=== PATIENT | male | born 1980 | race Caucasian/White ===

== ENCOUNTER 2023-01-20 06:17 | Emergency (ER) | payer OTHER, SELFPAY ==
[2023-01-20 06:23] VITALS: BP 123/87; PULSE 81; RESP 18; TEMP 36.9; O2SAT 98
[2023-01-20 07:06] LABS: Appearance Urine Clear (Clear); Basophils Absolute Auto 0.1 K/mm3 (0.0-0.1); Basophils Percent Auto 0.9 % (0.2-1.2); Bilirubin Urine Negative (Negative); Blood Urine Negative (Negative); Color Urine Yellow (Yellow); Eosinophils Absolute Auto 0.8 K/mm3 (0-0.3); Eosinophils Percent Auto 7.1 % (0-4.4); Glucose Urine UA Negative (Negative); Hematocrit 40.5 % (42.0-52.0); Hemoglobin 13.5 g/dL (14.0-18.0); Immature Granulocyte Absolute 0.04 K/mm3 (0.00-0.031); Immature Granulocyte Percent A 0.4 % (0-0.5); Ketones Urine Negative (Negative); Leukocyte Esterase Ur Negative LEU/UL (Negative); Lymphocytes Absolute Auto 3.37 K/mm3 (0.9-3.2); Lymphocytes Percent Auto 29.6 % (18.3-44.2); Mean Corpuscular HGB Conc 33.3 g/dl (32-36); Mean Corpuscular Hemoglobin 30.2 pg (26-34); Mean Corpuscular Volume 90.6 fl (80-100); Mean Platelet Volume 10.8 fl (7.4-10.4); Monocytes Absolute Auto 1.2 K/mm3 (0.1-0.6); Monocytes Percent Auto 10.9 % (2.6-8.5); Neutrophils Absolute Auto 5.8 K/mm3 (1.3-6.7); Neutrophils Percent Auto 51.1 % (45.5-73.1); Nitrate Urine Negative (Negative); Platelet Count Result 225 k/mm3 (150-375); Protein Urine Negative (Negative); Red Blood Count 4.47 M/mm3 (4.6-6.20); Red Cell Distribution Width 13.2 % (11.5-14.5); Specific Grav Ur 1.023 (1.001-1.035); White Blood Count 11.4 K/mm3 (4.5-10.0); pH Urine 6.5 (5.0-9.0)
[2023-01-20 07:11] LABS: Add Urine Microscopic? NO
[2023-01-20 07:14] LABS: Acetaminophen < 10 ug/mL (10-30); Ethanol < 10 mg/dL (<10); Salicylate < 1.0 mg/dL (2-20)
[2023-01-20 07:15] LABS: Alanine Aminotransferase 24 U/L (6-50); Albumin Level 3.8 g/dL (3.5-5.1); Alkaline Phosphatase 60 U/L (38-126); Anion Gap 2 mmol/L (8-16); Aspartate Amino Transferase 27 U/L (17-59); Bilirubin,Total 0.5 mg/dL (0.2-1.3); Blood Urea Nitrogen 16 mg/dL (9-20); Calcium 8.4 mg/dL (8.4-10.2); Carbon Dioxide 31 mmol/L (22-30); Chloride 107 mmol/L (98-107); Estimated CRCL calculation 126 ml/min; Estimated Glomerular Filt Rate > 60; Glucose 97 mg/dL (65-110); Potassium 3.8 mmol/L (3.4-5.0); Sodium 140 mmol/L (137-145)
--- NOTE | 2023-01-20 07:15 | PC.NURSE ---
pt resting on stretcher. no distress noted.
[2023-01-20 07:21] LABS: Amphetamine Screen Urine Negative (Negative); Barbiturate Screen Urine Negative (Negative); Benzodiazepines Screen Urine Negative (Negative); Cannabinoid Screen Urine Positive (Negative); Cocaine Screen Urine Negative (Negative); Methadone Screen Urine Negative (Negative); Opiate Screen Urine Negative (Negative); Phencyclidine Screen Urine Negative (Negative)
--- NOTE | 2023-01-20 07:46 | ED.GENADULT ---
HPI - General Adult General Chief complaint: Back Pain/Injury Stated complaint: back pain Time Seen by Provider: 01/20/23 07:02 History of Present Illness HPI narrative: 43-year-old male presented to the emergency department for evaluation of acute on chronic back pain. While patient was here he reports he is having suicidal ideation. Patient reports he does have history of depression. Patient is unsure if he has had any prior attempts. Patient does not suspect that he attempted to harm himself and denies any alcohol or taking any medications to harm himself. Patient states he no longer wishes to harm himself. Related Data Allergies Allergy/AdvReac Type Severity Reaction Status Date / Time UNKNOWN ANESTHESIA Allergy Unknown Unknown Uncoded 01/20/23 06:19 Review of Systems Review of Systems: CONSTITUTIONAL: Denies fever, chills, or sweats. EYES: Denies visual changes, redness, or discharge. ENT: Denies rhinorrhea, congestion, sore throat, or otalgia. CARDIOVASCULAR: Denies chest pain, palpitations, or edema. RESPIRATORY: Denies cough or dyspnea. GASTROINTESTINAL: Denies abdominal pain, nausea, vomiting, or diarrhea. GENITOURINARY: Denies dysuria or hematuria. SKIN: Denies rash or itching. MUSCULOSKELETAL: Denies back pain, joint pain, or myalgia. NEUROLOGIC: Denies headache, numbness, or weakness. PSYCHIATRIC: Reports suicidal ideation PMFSH Social History Social History Substance use type: marijuana Exam Narrative: APPEARANCE: Well appearing, no pain, no distress, well-nourished. HEAD: normocephalic, atraumatic. EYES: PERRLA/EOMI, conjunctivae clear. NOSE: Normal no drainage NECK: Supple. No adenopathy, no masses. RESPIRATORY: Airway patent, respirations nonlabored. Clear to auscultation bilaterally, no rales, rhonchi, wheezing. CARDIOVASCULAR: Regular rate and rhythm without murmurs rubs or gallops. ABDOMINAL: Soft, nontender, nondistended, normal bowel sounds MUSCULOSKELETAL: Moves all extremities. Strength/ROM intact, No edema, No calf tenderness. NEURO: Alert. Cranial nerves II through XII intact. Grossly intact SKIN: Warm, dry. Normal Color Course Course Emergency Course: Patient was evaluated by the crisis counselor for his report of suicidal ideation. Patient agreed to sign a safety agreement and states he is no longer suicidal. Patient denies any back complaint at time of discharge and patient was able to ambulate with any abnormality. Patient was encouraged of close follow-up with his primary care physician. All questions concerns were addressed and patient was stable at time of discharge from emergency department. Vital Signs Vital signs: Vital Signs Temperature 98.5 F 01/20/23 06:23 Pulse Rate 81 01/20/23 06:23 Respiratory Rate 18 01/20/23 06:23 Blood Pressure 123/87 01/20/23 06:23 Pulse Oximetry 98 01/20/23 06:23 Oxygen Delivery Room Air 01/20/23 06:23 Temperature 98.5 F 01/20/23 06:23 Pulse Rate 81 01/20/23 06:23 Respiratory Rate 18 01/20/23 06:23 Blood Pressure 123/87 01/20/23 06:23 Pulse Oximetry 98 01/20/23 06:23 Oxygen Delivery Room Air 01/20/23 06:23 Medical Decision Making Vital Signs Vital Signs: Vital Signs Temperature 98.5 F 01/20/23 06:23 Pulse Rate 81 01/20/23 06:23 Respiratory Rate 18 01/20/23 06:23 Blood Pressure 123/87 01/20/23 06:23 Pulse Oximetry 98 01/20/23 06:23 Oxygen Delivery Room Air 01/20/23 06:23 Temperature 98.5 F 01/20/23 06:23 Pulse Rate 81 01/20/23 06:23 Respiratory Rate 18 01/20/23 06:23 Blood Pressure 123/87 01/20/23 06:23 Pulse Oximetry 98 01/20/23 06:23 Oxygen Delivery Room Air 01/20/23 06:23 Lab Data 01/20/23 06:53 01/20/23 06:53 Labs: Lab Results 01/20/23 Range/Units 06:53 WBC 11.4 H (4.5-10.0) K/mm3 RBC 4.47 L (4.6-6.20) M/mm3 Hgb 13.5 L (14.
[2023-01-20 07:48] LABS: Thyroid Stimulating Hormone 0.544 uIU/mL (0.465-4.680)
[2023-01-20 08:27] LABS: SARS-CoV-2 RNA PCR Negative (Negative)
== END 2023-01-20 10:30 | disposition home or self-care (01) ==
PROVIDERS: Emergency Medicine; Emergency Provider Emergency Medicine
DX: F32.A Depression, unspecified (principal); R45.851 Suicidal ideations; M54.50 Low back pain, unspecified; Z20.822 Contact with and (suspected) exposure to COVID-19
CPT/HCPCS: 36415; 80053; 80307; 81003; 84443; 85025; 87635; 99284; U0005

== ENCOUNTER 2023-01-20 14:29 | Emergency (ER) | payer OTHER, SELFPAY ==
--- NOTE | ~2023-01-20 | CT_ITS ---
EXAMINATION: CT lumbar spine wo con DATE: 01/20/2023 17:54 INDICATION: Low back pain TECHNIQUE: Computed tomography (CT) of the lumbar spine was performed without intravenous contrast. A utomated exposure control and iterative reconstruction technique were employed. The dose-length produ ct was 1264.40 mGy-cm. COMPARISON: None FINDINGS: 4 mm retrolisthesis L5 on S1. Chronic appearing likely physiologic mild anterior wedging at T12-L2. N o acute fracture. Mild disc height loss at T12-L1 and L4-L5 and moderate disc height loss at L5-S1. C holecystectomy clips at gallbladder fossa. Multiple small rim calcified likely dropped gallstones in the deep pelvis. Paravertebral soft tissues are unremarkable. The following disc levels are specifica lly discussed: T11-T12: Small left foraminal zone disc protrusion. There is mild bilateral facet joint osteoarthriti s. There is mild left neural foraminal stenosis. There is no central canal stenosis. T12-L1: The disc does not extend beyond the endplate margin. There is mild bilateral facet joint oste oarthritis. There is no neural foraminal stenosis. There is no central canal stenosis. L1-L2: The disc does not extend beyond the endplate margin. There is mild bilateral facet joint osteo arthritis. There is no neural foraminal stenosis. There is no central canal stenosis. L2-L3: Disc is mildly bulging. There is mild bilateral facet joint osteoarthritis. There is mild bila teral neural foraminal stenosis. There is no central canal stenosis. L3-L4: Disc is mildly bulging. There is mild bilateral facet joint osteoarthritis. There is mild bila teral neural foraminal stenosis. There is mild central canal stenosis. L4-L5: Disc is bulging. There is mild bilateral facet joint osteoarthritis. There is mild bilateral n eural foraminal stenosis. There is mild central canal stenosis. L5-S1: Disc is bulging. There is mild right and mild to moderate left facet joint osteoarthritis. The re is moderate left and mild to moderate right neural foraminal stenosis. There is mild central canal stenosis. IMPRESSION: 1. Mild lumbar and lower thoracic spondylosis. Reviewed, dictated and finalized at location A.
[2023-01-20 14:36] VITALS: BP 137/82; PULSE 86; RESP 16; TEMP 36.3; O2SAT 98
--- NOTE | 2023-01-20 17:45 | ED.BACK ---
HPI - Back Pain/Injury General Chief Complaint: Back Pain/Injury <Mallika Wilder PA-C - Last Filed: 01/20/23 20:01> Stated Complaint: back pain <IZABELA Redman Last Filed: 01/20/23 20:01> Time Seen by Provider: 01/20/23 16:43 <Mallika Wilder PA-C - Last Filed: 01/20/23 20:01> History of Present Illness HPI Narrative: 43 y/o M reports for evaluation of acute on chronic low back pain. Patient states the pain is worse in the past 2 and half hours. According to the triage note, patient was found wandering the parking lot and was brought in by security. He is homeless. States he has had chronic back pain since he fell off of a balcony 12 years ago. Denies recent trauma or injury. He denies loss of bowel or bladder control or retention, fever, use of steroids or immunosuppressants, lower extremity weakness, difficulty walking, urinary complaints. Pt report his pain is currently 09/08. <IZABELA Redman Last Filed: 01/20/23 20:01> Related Data Allergies/Adverse Reactions: Allergies Allergy/AdvReac Type Severity Reaction Status Date / Time UNKNOWN ANESTHESIA Allergy Unknown Unknown Uncoded 01/20/23 06:19 <Mallika Wilder PA-C - Last Filed: 01/20/23 20:01> Review of Systems Review of Systems: CONSTITUTIONAL: Denies fever, chills EYES: Denies visual changes, redness, or discharge. ENT: Denies rhinorrhea, congestion, sore throat, or otalgia. CARDIOVASCULAR: Denies chest pain, palpitations, or edema. RESPIRATORY: Denies cough or dyspnea. GASTROINTESTINAL: Denies abdominal pain, nausea, vomiting, or diarrhea. GENITOURINARY: Denies dysuria or hematuria. SKIN: Denies rash or itching. MUSCULOSKELETAL: See HPI NEUROLOGIC: Denies headache, numbness, dizziness, or weakness. PSYCHIATRIC: Denies anxiety or depression. <IZABELA Redman Last Filed: 01/20/23 20:01> [facility] Social History Social History: Social History Substance use type: marijuana <Mallika Wilder PA-C - Last Filed: 01/20/23 20:01> Exam Narrative: GENERAL: Well-appearing, in no acute distress. HEAD: Normocephalic NECK: Supple. No midline cervical spinous tenderness, step-offs or deformities. CHEST: No respiratory distress. Clear to auscultation, no adventitious breath sounds. HEART: Regular rate and rhythm. No murmur heard. Normal peripheral pulses. EXTREMITIES: Normal range of motion. No edema. Full ROM. Strength 5/5 to BLE. Sensation intact throughout. No saddle anesthesia. DP pulses 2+. Ambulating w/o difficulty. BACK: Midline cervical spinous tenderness to the lumbar spine without step-offs or deformities. Paraspinous tenderness to the lumbar spine bilaterally. No overlying skin changes. Negative CVA tenderness. SKIN: Warm, dry, no rash. NEURO: No focal deficits. Alert and oriented x3. PSYCH: Normal mood and affect. <Mallika Wilder PA-C - Last Filed: 01/20/23 20:01> Course [employer]/PA Physician Supervision For this patient encounter, I reviewed the [employer] H[employer] or PA documentation, treatment plan, and I was responsible for the medical decision making; and I had [id number] time with this patient. <Spencer Birmingham MD - Last Filed: 01/21/23 07:03> Vital Signs Vital signs: Vital Signs Temperature 97.4 F L 01/20/23 14:36 Pulse Rate 86 01/20/23 14:36 Respiratory Rate 16 01/20/23 14:36 Blood Pressure 137/82 01/20/23 14:36 Pulse Oximetry 98 01/20/23 14:36 Oxygen Delivery Room Air 01/20/23 14:36 Temperature 97.4 F L 01/20/23 14:36 Pulse Rate 86 01/20/23 14:36 Respiratory Rate 16 01/20/23 14:36 Blood Pressure 137/82 01/20/23 14:36 Pulse Oximetry 98 01/20/23 14:36 Oxygen Delivery Room Air 01/20/23 14:36 <Mallika Wilder PA-C - Last Filed: 01/20/23 20:01> Vital Signs Temperature 97.4 F L 01/20/23 14:36 Pulse Rate 86 01/20/23 14:36 Respiratory Rate 16 01/20/23
[2023-01-20] MEDS: ACETAMINOPHEN 500 MG TABLET 1000 MG PO (18:00)
[2023-01-20] MEDS: IBUPROFEN 600 MG TABLET PO (18:01)
== END 2023-01-20 19:01 | disposition home or self-care (01) ==
PROVIDERS: Emergency Provider Physician Assistant
DX: M54.50 Low back pain, unspecified (principal); G89.21 Chronic pain due to trauma
CPT/HCPCS: 36415; 72131; 80053; 80307; 81003; 84443; 85025; 87635; 99284; A9270

== ENCOUNTER 2023-03-10 21:48 | Emergency (ER) | payer OTHER, SELFPAY ==
[2023-03-10 21:52] VITALS: BP 120/58; PULSE 75; RESP 16; TEMP 36.3; O2SAT 98
--- NOTE | 2023-03-10 22:31 | PC.NURSE ---
First call in triage [id number], no answer.
--- NOTE | 2023-03-10 22:43 | PC.NURSE ---
Second call in triage, [id number], no answer. Patient not in waiting room or out side by emergency department.
== END 2023-03-10 22:55 | disposition left against medical advice (07) ==
LOC: ANHED 22:53
DX: M79.662 Pain in left lower leg (principal)
CPT/HCPCS: 99199